=== PATIENT | male | born 1970 | race Hispanic/Latino ===

== ENCOUNTER 2018-10-17 12:45 | Outpatient (CLI) | payer OTHER ==
--- NOTE | 2018-10-17 13:55 | Magnetic Resonance Report ---
MRI of the right knee without contrast INDICATION: Right knee pain following injury. Recent twisting injury. TECHNIQUE: Multiplanar multisequence images of the right knee obtained without IV contrast. FINDINGS: There is a complex macerated tear identified involving the posterior horn of the medial men iscus with extension to the posterior root of the medial meniscus. There are several free intra-artic ular bodies within the posterior aspect of the joint space enlarged which measures 3 mm in diameter. There is moderate tricompartmental degenerative changes of the knee, primarily within the medial femo rotibial compartment. No significant knee effusion. The cruciate and collateral ligaments are intact. There is tendinosis involving the distal quadriceps tendon but is grossly intact. IMPRESSION: 1. Severely macerated tear involving the posterior horn of the medial meniscus with extension to the posterior root of the medial meniscus, as above. No high-grade cruciate or collateral ligament injury identified. 2. Moderate tricompartmental degenerative changes with several free intra-articular bodies within the posterior aspect of the joint space or Signer Name: Unruly Hines MD Signed: 10/17/2018 1:51 PM Workstation Name: [id number]
== END 2018-10-17 12:46 | disposition home or self-care (01) ==
LOC: MRI 12:45
PROVIDERS: ATTEND Internal Medicine
DX: S83.241A Other tear of medial meniscus, current injury, right knee, initial encounter (principal); M17.11 Unilateral primary osteoarthritis, right knee; X58.XXXA Exposure to other specified factors, initial encounter; Y93.89 Activity, other specified; Y92.89 Other specified places as the place of occurrence of the external cause; Y99.8 Other external cause status
CPT/HCPCS: 73721